=== PATIENT | male | born 2000 | race Caucasian/White ===

== ENCOUNTER 2024-09-29 22:14 | Emergency (ER) | payer SELFPAY ==
[2024-09-29 22:17] VITALS: BP 150/92; PULSE 66; RESP 16; TEMP 36.6; O2SAT 98
--- NOTE | 2024-09-29 22:52 | ED.GENADUL_ITS ---
Discharge Plan Disposition Patient Disposition: Home Condition: Good Discharge Details Clinical Impression: Pharyngitis Primary Care Provider: None,None ED Provider: Blue Sheets Home Meds and New Rx's Prescriptions: No Action epinephrine [EpiPen 2-Rudy] 0.3 MG/0.3 ML auto-injector 0.3 mg IM ONCE Qty: 1 Discharge Instructions Instructions: Sore throat in adults Additional Instructions: At this time your strep test has returned negative. As we discussed together, we are waiting on the herpes test to come back and this will be a few days until the results. We are also waiting on the strep test culture results to return. You will be contacted if these return positive. If you have not heard anything back after the next 2 to 3 days, please not hesitate to reach out. Out of an abundance of caution, we have given you the single treatment dose for chlamydia. In the meantime, I would recommend that you take 600 mg of Motrin every 6-8 hours and 500 mg of Tylenol every 6-8 hours for the next week. Please do this in conjunction with taking 2 tablespoons of honey every 6 hours. If your symptoms do not improve or resolve and your culture tests are negative aft er a week of therapy you may need to have further follow-up with the ear nose throat specialist. If you notice any worsening of your symptoms, or any new symptoms such as vomiting, diarrhea, fever, chills, shortness of breath, chest pain, numbness, weakness, or fainting , please return immediately to the emergency department for reevaluation. Please follow up with your primary care provider as soon as possible for reassessment and reevaluation. As always, it was a pleasure participating in your medical care today. Referrals: Jose Escoto MD [ [facility] STAFF PHYSICIAN] - [facility] General Date/Time Provider Initiated Documentation: 09/29/24 22:35 . [facility] Narrative: This is a 24-year-old male with no significant past medical history who presents today for evaluation of sore throat. Patient states that 2 to 3 weeks ago he developed a mild upper respiratory infection with runny nose and congestion and mild chills. At that time he also developed a sore throat, however the other symptoms resolved over the next few days and the sore throat persisted. He denies vomiting or diarrhea. He denies difficulty swallowing or drinking or eating but he does admit to pain whenever he tries to drink or swallow. Pain is improved/resolved when he takes Tylenol or Motrin. He denies any other complaints. He denies any personal history of STDs, but when asked he does admit that his partner did have chlamydia a month or 2 ago but was treated for this. He does admit to oral sex with his female partner. No other complaints at this time peer Related Data Home Medications ?Medication ?Instructions ?Recorded ?Confirmed epinephrine 0.3 mg/0.3 mL 0.3 mg IM ONCE ##1 02/09/17 09/29/24 injection, auto-injector (EpiPen 2-Rudy) Allergies Allergy/AdvReac Type Severity Reaction Status Date / Time amoxicillin AdvReac Intermediate Diarrhea Unverified 09/29/24 22:19 General Stated Complaint: Sorethroat CRISPIN: 4 Exam Narrative Exam Narrative: 1.Const: Well-nourished, Well-developed, appearing stated age 2.Eyes: PERRL, no conjunctival injection, and symmetrical lids. 3.ENT: Atraumatic external nose and ears. Moist MM. Neck: Symmetric, trachea midline, No thyromegaly. Tympanic membranes are flores and pearly. Patient does have mild erythema in the posterior oropharynx. No vesicles, tonsils are not enlarged. No tonsillar exudate. No evidence of peritonsillar abscess. 4.CVS: +S1/S2, Peripheral pulses 2+ and equal in all extremities. Brisk capillary refill in all extremities. 5.RESP: Unlabored respiratory effort. Clear to auscultation bilaterally. No wheezes rales or rhonchi 6.GI: Soft, Nontender/Nondistended, No hepatosplenomegaly. No guarding or rebound. 7.MSK: Normocephalic/Atraumatic, Extremities w/o deformity or ttp No cyanosis or clubbing, Normal movement of all extremities 8.Skin: Warm, Dry. No rashes or lesions. 9.Neuro: white shoe examiner II-XII grossly intact. Sensation grossly intact, no focal neurologic deficits. 10.Psych: (AAO) x3. Appropriate mood and affect Course Vital Signs Vital signs: Vital Signs Temperature 36.6 C 09/29/24 22:17 Pulse 66 09/29/24 22:17 Respiratory Rate 16 09/29/24 22:17 Blood Pressure 150/92 H 09/29/24 22:17 Pulse Oximetry 98 09/29/24 22:17 Temperature 36.6 C 09/29/24 22:17 Temperature Source Oral 09/29/24 22:17 Pulse 66 09/29/24 22:17 Respiratory Rate 16 09/29/24 22:17 Blood Pressure 150/92 H 09/29/24 22:17 Blood Pressure Position Sitting 09/29/24 22:17 Pulse Oximetry 98 09/29/24 22:17 Oxygen Delivery Method Room Air 09/29/24 22:17 Oxygen Flow Rate 0 09/29/24 22:17 Lab/Test Results Lab/Test Results: 09/29/24 22:15 Tonsil - Not Specified Group A Streptococcus Culture - Pending POC Strep Test-ARA(Rapid) Start: 09/29/24 22:26 Freq: .Rapid Strep Test Status: Active Protocol: Document 09/29/24 22:27 NOAH (Rec: 09/29/24 22:27 NOAH [id number]) Strep test-ARA(Rapid)-POC POC-Strep test-ARA (Rapid) Negative POC-Strep test-ARA (Rapid) Negative Medical Decision Making This is a 24-year-old male with no significant past medical history who presents today for evaluation of sore throat. Patient states that 2 to 3 weeks ago he developed a mild upper respiratory infection with runny nose and congestion and mild chills. At that time he also developed a sore throat, however the other symptoms resolved over the next few days and the sore throat persisted. He denies vomiting or diarrhea. He denies difficulty swallowing or drinking or eating but he does admit to pain whenever he tries to drink or swallow. Pain is improved/resolved when he takes Tylenol or Motrin. He denies any other complaints. He denies any personal history of STDs, but when asked he does admit that his partner did have chlamydia a month or 2 ago but was treated for this. He does admit to oral sex with his female partner. No other complaints at this time peer Exam demonstrates a well-appearing male, mild erythema in the posterior oropharynx, but no vesicles, tonsillar exudates, evidence of peritonsillar abscess, or swelling in the posterior oropharynx. No evidence of Ludewig's angina. No nuchal rigidity or evidence of otitis media. Signs and symptoms appear consistent with a mild upper respiratory infection versus pharyngitis, no tonsillitis. Strep test was performed and was negative. We will send for culture. Herpes swab was performed for testing. No exudate is present or available for swabbing for gonorrhea or chlamydia. With no pus, exudate or evidence of abscess, likelihood of gonorrhea is notably low and inconsistent with symptoms. However there is potential concern for chlamydia being residual. We will treat empirically with 1 g of azithromycin. Otherwise recommend continued NSAID therapy, 2 tablespoons of honey every 6 hours. If his symptoms persist after a week of conservative therapy and his cultures are negative, we did recommend follow-up with ENT. Discussed red flags for which to return. I have extensively reviewed the treatment plan and discharge instructions with the patient. I have addressed all patient concerns at this time. The patient was made aware of what symptoms to monitor for that would warrant a return to the emergency department. Discussed the plan with the patient, they demonstrate verbal understanding and agreement with our assessment and plan at this time. The documentation in this chart was dictated using [employer] dictation software. Please excuse any dictation errors. Quality:SDOH Health Related Social Needs: No Data to Display PFSH All Active Problems (Updated 09/29/24 @ 22:54 by Blue Sheets DO) Pharyngitis (Acute) Medical History (Updated 09/29/24 @ 22:54 by Blue Sheets DO) Asthma ADHD Overweight Dental caries Concussion 2004 Insomnia Allergic reaction to spider bite Surgical History Circumcision Family History Mother Healthy adult on routine physical examination Father Healthy adult on routine physical examination Sister Asthma Other Diabetes MGM Essential hypertension MGM Neoplasm MGM, mat aunt-breast Social History Smoking/Tobacco Use Status: Never Smoking risk assessment performed?: Yes Drug use: Never
[2024-09-29] MEDS: Azithromycin 250 MG TAB 1000 MG PO (23:01)
[2024-10-01 11:17] LABS: HSV 1 DNA Result Negative (Negative); HSV 2 DNA Result Negative (Negative)
== END 2024-09-29 23:03 | disposition home or self-care (01) ==
LOC: ER 23:02
PROVIDERS: Emergency Provider Student in an Organized Health Care Education/Training Program
DX: Z20.2 Contact with and (suspected) exposure to infections with a predominantly sexual mode of transmission; J02.9 Acute pharyngitis, unspecified
CPT/HCPCS: 99283 ×2; 87880; 87529; 87081